=== PATIENT | female | born 1965 | race Caucasian/White ===

== ENCOUNTER → 2019-12-29 13:38 | Outpatient (CLI) | payer BC, SELFPAY ==
[2019-12-30 14:09] LABS: COVID19 Sendout Not Detected (Not Detect)
== END ==
PROVIDERS: Visit Provider Physician Assistant
DX: Z01.812 Encounter for preprocedural laboratory examination (principal)
CPT/HCPCS: 87635

== ENCOUNTER 2020-01-02 15:25 | Observation (INO) | payer BC, SELFPAY ==
[2019-12-25 14:55] VITALS: BMI 18.1
[2020-01-01] VITALS (14 sets, daily range): BP systolic 98–148; BP diastolic 60–88; PULSE 63–88; RESP 12–20; TEMP 36.2–36.9; O2SAT 95–100; BMI 18.1
--- NOTE | 2020-01-01 | DI.RAD.S_ITS ---
PROCEDURE: XR LUMBAR SPINE 2-3V INDICATIONS: L3-4 TLIF TECHNIQUE: 2 views of the lumbar spine were acquired. COMPARISON: None. FINDINGS: Bones: Postsurgical changes compatible with L3-L4 TLIF. Soft tissues: Overlying bowel gas pattern is normal. No suspicious soft tissue calcifications. IMPRESSION: Expected postsurgical change for L3-L4 TLIF. Dictated by: Hallie Collier MD, PhD on 01/01/2020 at 15:45 Approved by: Hallie Collier MD, PhD on 01/01/2020 at 15:48
--- NOTE | 2020-01-01 11:41 | PM.PREOP ---
Pre-operative Note COVID-19 COVID-19 status: Negative Result date/Date tested (Pos, Neg/Pending): 12/30/19 Interval Note History & Physical reviewed/Exam performed by Physician: Yes Changes to H&P: No
[2020-01-01] MEDS: LACTATED RINGERS 1,000 ML 42 ML IV ×2 (12:01→14:16)
[2020-01-01] MEDS: CEFAZOLIN 2 GM/100 ML FROZ.PIGGY IV (12:24)
--- NOTE | 2020-01-01 12:52 | SUR.OPER ---
Prone on spine table, head in foam head support, padded chest and pelvic supports, gel pad at knees, lower legs supported by pillows; nipples, genitalia and toes free of pressure, arms secured on foam padded arm boards at <90 degrees abduction. Tape over blanket at thigh secured to table.
[2020-01-01] MEDS: BUPIVACAINE LIPOSOME 266 MG/20 ML VIAL INJ (13:01)
[2020-01-01] MEDS: BUPIVACAINE 0.25% W/ EPI 30 ML VIAL INJ (13:01)
--- NOTE | 2020-01-01 14:45 | P.OP_ITS ---
Operative Date/Time/Diagnoses Date of procedure: 01/01/20 Time of procedure: 12:20 Pre-op diagnosis: 1. Lumbar scoliosis 2. Lumbar spinal stenosis with neurogenic claudication L3-4, L4-5 3. Lumbar spondylosis with radiculopathy Post-op diagnosis: same Procedure & Clinicians Procedure: 1. L3-4 Postero-lateral and posterior interbody fusion 2. L3-4 interbody cage placement. 3. L3-4 decompressive laminectomy with bilateral facetecomies 4. L4-5 right hemilaminectomy 5. L3-4 Posterior non-segmental instrumentation 6. [place] of bone marrow from iliac crest 7. Utilization of microsurgical technique and operating microscope Same procedure as scheduled: Yes Indications: Patient has been having chronic back pain and worsening lumbar radiculopathy. Patient failed multiple conservative management with worsening pain weakness and numbness in her lower extremity. Patient has been having difficulty performing activity of daily living. After discussing risks benefits of treatment options, patient elected proceed with surgery. Surgeon: Karen Shepherd Logistics Operations Manager: Sanjana Amaya Click Yes if Unassisted: No Anesthesia Type: General Operative Notes Closure Type: primary Specimen(s): none sent Prosthetic devices, grafts, tissues, transplants, or devices: GLobus revolve screws, Rise cages Estimated Blood Loss (mL): 50 Blood products transfused: none Procedure in detail: Patient was seen in the preoperative area. Risks and benefits of the surgery was discussed with the patient. Informed consent was obtained from the patient and placed in the chart. Surgical site was marked. Patient was taken to the operative room. General anesthesia was administered. Prophylactic antibiotic was given to the patient less than 30 min before the incision was made. Patient was placed into a prone position on the Lars table. Patient's back was then prepped and draped in the sterile fashion. Time- out was performed at this time. Using AP and lateral C-arm imaging the interval between L3-4 L4-5 was identified and marked on patient's back. A 2 inch incision 2 in from midline was made on the right side first. The fascia was incised in line with skin incision. Globus MARS retractors was placed inside the incision and docked onto the L3 lamina. Using microsurgical technique and operating microscope, a L3 laminectomy and L3- 4 facetectomy was performed using a Kerrison rongeur. Fusion was found have severe central and neural foramen stenosis which was fully decompressed after the laminectomy and facetectomy was completed. The disc space at L3-4 was identified. And a total diskectomy was performed at L3-4 level. The endplates were decorticated using a rasp and shaver. The total diskectomy and decortication was performed at L3-4 level in order to to accomplish a L3-4 fusion. The local bone from the laminectomy and facetectomy was saved for local bone grafting. After the total diskectomy and decortication was completed, Trifecta bone graft material was combined with local bone that was harvested earlier. At this time, a separate skin is incision was made over the iliac crest. A Jamshidi needle was inserted into the iliac crest through a separate skin incision. 5 cc of bone marrow aspiration was obtained through the separate skin incision using a Jamshidi needle from the iliac crest. The bone marrow aspiration was combined with local bone and the Trifecta bone grafting material. The bone grafting material was placed into the L3-4 interbody space along with a expandable cage. The cage was expanded to its maximum height using the torque limiting screwdriver. At this time the MARS retractor was redirected over the L4 lamina. Using microsurgical technique and operating microscope, a L4-5 heminectomy was performed using the Kerrison rongeur. The ligamentum flavum was also resected at the side of the hemilaminectomy for further decompression of the epidural space. At this time a mirror image incision was made on the left side. The fascia was incised in line with the skin incision. Globus MARS retractor was inserted and docked onto the L3-4 posterolateral gutter. Using the power drill, posterior- lateral decortication was performed at L3-4 level until bleeding cortical bone was identified. The remaining bone grafting material was placed into the L3-4 posterior lateral gutter he order to accomplish posterolateral fusion at the L3- 4 level. Using the double C-arm technique, pedicle screws were placed into the L3 and L4 pedicles bilaterally. This was done by placing the Jamshidi needle into the pedicles, then placing the guidewires over the Jamshidi needle, and finally placing the cannulated screws over the guidewires bilaterally. After the pedicle screws were placed, 2 titanium rods was locked into the heads of the pedicle screws using locking caps and torque limiting screwdriver. After all the hardware was placed, and confirmed with AP and lateral C-arm imaging, the wound was then irrigated with sterile normal saline and packed with Ray-Alfonso gauze for 3 min to accomplish hemostasis. After the gauze was removed the deep fascia was closed with #1 Vicryl suture. The subcutaneous layer was closed with 2-0 Vicryl. The skin was closed with skin kyle. Patient tolerated the procedure well. There were no complications. Complications: none Post-operative Condition: stable Disposition: PACU Plan for aftercare: Admit to inpatient hospital
[2020-01-01] MEDS: fentaNYL 100 MCG/2 ML INJ IV ×3 (15:00→15:19)
--- NOTE | 2020-01-01 15:23 | SUR.PHASEI ---
Rx repeated for pain, pt resting quietly, states that pain is beginning to improve, but 'not yet' a 4. Drowsy, responds readily to voice.
[2020-01-01] MEDS: OXYCODONE/ACETAMINOPHEN 5/325 TABLET 1 TAB PO (15:37)
--- NOTE | 2020-01-01 15:37 | SUR.PHASEI ---
states pain is 'a four, maybe a 3. Applesauce given prior to PO med
--- NOTE | 2020-01-01 16:13 | SUR.PHASEI ---
1559 to room 216, bed down and locked, call light within reach, SCD's on. Back dressing remains CDI. Clothing and blue bag to the room. Report updated. No questions from pt or staff. Stable.
[2020-01-01] MEDS: OXYCODONE IR 5 MG TABLET PO (16:49)
[2020-01-01] MEDS: SODIUM CHLORIDE 0.9% 1,000 ML 100 ML IV (17:10)
[2020-01-01] MEDS: ONDANSETRON 4 MG/2 ML INJ IV (17:20)
[2020-01-01] MEDS: HYDROMORPHONE 0.5 MG INJ 0.2 MG IV (20:47)
[2020-01-01] MEDS: CEFAZOLIN 1 GM/50 ML FROZ.PIGGY IV (20:48)
[2020-01-02] VITALS: BP 117/75; PULSE 85; RESP 18; TEMP 37.6; O2SAT 97
[2020-01-02] MEDS: ONDANSETRON 4 MG/2 ML INJ IV ×2 (00:31→08:08)
[2020-01-02] MEDS: hydrOXYzine pamoate 25 MG CAPSULE PO ×2 (00:32→08:08)
[2020-01-02] MEDS: OXYCODONE IR 5 MG TABLET PO ×4 (00:32→16:10)
[2020-01-02] MEDS: SODIUM CHLORIDE 0.9% 1,000 ML 100 ML IV (02:35)
[2020-01-02 03:10] VITALS: BP 109/60; PULSE 85; RESP 22; TEMP 37.4; O2SAT 97
--- NOTE | 2020-01-02 03:26 | PC.NURSE ---
Patient complains of nausea and dizziness upon shifting position and when transferring from the bed to the bedside commode. She was medicated with an anti-emetic and pain medication, see MAR. The patient was sat at the bedside and became dizzy and had an output of 125mL of emesis. Patient states, I feel much better after I throw up. She was educated on deep breathing to help with nausea, anxiety and pain and assisted back to bed with safety checks completed.
[2020-01-02] MEDS: CEFAZOLIN 1 GM/50 ML FROZ.PIGGY IV (04:06)
[2020-01-02 07:00] VITALS: BP 91/59; PULSE 60; RESP 16; TEMP 37.7; O2SAT 96
--- NOTE | 2020-01-02 08:08 | PM.PN.1 ---
Exam Vital Signs (past 8 hours): - 01/02/20 03:10 Temperature 99.3 F Pulse Rate 85 Respiratory Rate 22 Blood Pressure 109/60 Pulse Oximetry 97 Oxygen Delivery Method Room Air Oxygen Flow Rate 0 Assessment & Plan Assessment & Plan narrative: POD#1 s/p L3-4 TLIF and L4-5 hemilami Neurovascularly intact. No S/s of DVT. Patient has nausea and vomitting, zofran does help per patient. Dressing clean dry intact. Will plan to d/c later today after cleared by PT/OT and improved nausea. Quality VTE Deep Vein Thrombosis/Pulmonary Embolism Present on Admission: No
--- NOTE | 2020-01-02 10:25 | PT.IIE ---
Current Diagnoses Other secondary scoliosis, lumbar region (01/01/20) Spondylolisthesis, lumbar region (01/01/20) Spinal stenosis, lumbar region with neurogenic claudication (01/01/20) Surgery Performed Operation Date: 01/01/20 12:45 Actual Procedures p L4-5 hemilaminectomy, L3-4 TLIF w. posterior instrumentation - Karen Shepherd MD Surgical History (Last Updated 08/20/19 @ 14:24 by Jen Puentes, RN) Hx of bilateral breast implants (Acute) Hx of tonsillectomy (Acute) Medical History (Last Updated 08/20/19 @ 14:24 by Jen Puentes RN) Abnormal small intestine motility (Acute) Anxiety (Acute) Arthritis (Acute) Back pain (Acute) Depression (Acute) Easy bruisability (Acute) Malabsorption (Acute) Neck pain (Acute) OCD (obsessive compulsive disorder) (Acute) Pedal edema (Acute) PTSD (post-traumatic stress disorder) (Acute) Sciatica (Acute) Physical Therapy Inpatient Evaluation/Re-Eval M1 PT/OT-IP Prior Functional Status Start: 01/02/20 12:42 Freq: NEEDED Status: Active Protocol: Document 01/02/20 10:25 AB (Rec: 01/02/20 12:57 AB [id number]) Medical Review Prior Functional Status Medical History Reviewed Yes Communication able to make needs known Mobility and Gait pt stated that she is independent with all mobilities and ambulation without AD Social History Household Members spouse Living Arrangements House Number of Floors (Floors) One Floor Number of Stairs To Enter/Railing? 1 step to enter Home Environment Standard Height Toilet,Walk in Shower,Built-In Shower Seat Home Equipment Front Wheel Walker,Hand Held Shower Employment Status Retired M2 PT-IP Current Condition Start: 01/02/20 12:42 Freq: NEEDED Status: Active Protocol: Document 01/02/20 10:25 AB (Rec: 01/02/20 12:57 AB [id number]) Physical Therapy Current Condition Current Condition Evaluation Date 01/02/20 Treatment Diagnosis s/p L3-4 postlat/post fusion/ lami; L4-5 R hemilami; difficulty in walking Onset Date 01/01/20 Precautions Lumbar Precautions Log Roll,No Twisting,Limit Bending,Lifting Restriction of 10 lbs,Gait Belt above Incisional Area M3 PT-IP Subjective Start: 01/02/20 12:42 Freq: NEEDED Status: Active Protocol: Document 01/02/20 10:25 AB (Rec: 01/02/20 12:57 AB [id number]) Subjective Physical Therapy Visit Type Type Initial Evaluation Visit Start Time 10:25 Visit Stop Time 10:58 Total Visit Minutes 33 Number of PROCUREMENT CONSULTANT Visits 0 Physical Therapy Visit Comments Patient Comments pt is agreeable to do PT Therapy Pain Assessment Pain When Pain Assessed At Rest Pain Present Pain Present Pain Reported Location back Intensity 3 Scale Used increases to 4/10 with mobility Pain Management Techniques Modification of Treatment,Re- positioning,Timing of Activity with Medications M4 PT-IP Mobility and Gait Start: 01/02/20 12:42 Freq: NEEDED Status: Active Protocol: Document 01/02/20 10:25 AB (Rec: 01/02/20 12:57 AB [id number]) PT-Bed Mobility Assessment Rolling Type of Rolling Log Rolling Level of Assist Minimal Assistance Supine to Sit Supine to Sit Minimal Assistance,Bedrails PT-Transfer Assessment Sit to and From Stand Sit to and from Stand Moderate Assistance,1 Person Assistance,Use of Upper Extremities Equipment Transfer Assistive Device Gait Belt,Front Wheeled Walker Transfers Transfer Destination Chair Transfer Technique Stand Step Pivot Transfer Ability Level of Assist 1 Person Assistance,Use of Upper Extremities Comments Mobility Comments BP in supine: 101/58. educated pt on back precautions and log roll bed mobility. completed supine to sit min A and cues. pt was able to sit on EOB CGA. c/o nausea and dizziness. BP 114/ 69. pt was able to stay seated and BP checked again after ~ 2min: 106/72. pt completed sit to stand mod A and cues. BP in standin /72. pt was able to stand with CGA and BP checked again after ~ 2min : 131/53. pt completed step transfer to chair using FWW min A. BP checked after transfer: 92/55. pt continues to c/o dizziness and nausea. ambulation deferred due to decrease in BP and c/o nausea. educated on sit <>stand technique. completed sit <> stand x 3 reps min A and cues. positioned pt on chair. call light and table placed within reach. Gait Assessment Comments Gait Comments please refer to mobility section for details PT-Balance Assessment Sitting Balance and Reactions Static Sitting Balance Ability Good Dynamic Sitting Balance Ability Fair Standing Balance and Reactions Static Standing Balance Ability Fair Dynamic Standing Balance Ability Fair Device Used FWW M5 PT-IP Objective Assessments Start: 01/02/20 12:42 Freq: NEEDED Status: Active Protocol: Document 01/02/20 10:25 AB (Rec: 01/02/20 12:57 AB [id number]) Orientation Orientation/Cognition Level of Alertness Alert Orientation Name,Place,Situation Language Function Ability No Deficits Noted Safety Awareness Understands Safety Issues Memory Description No Deficits Noted Gross Range of Motion Lower Extremity ROM Assessment Within Functional Limits Strength Lower Extremity Strength Assessment Within Functional Limits Sensation Assessment Sensation Gross Sensation WNL Muscle Tone Muscle Tone WNL Yes M6 PT-IP Treatment Start: 01/02/20 12:42 Freq: NEEDED Status: Active Protocol: Document 01/02/20 10:25 AB (Rec: 01/02/20 12:57 AB [id number]) Physical Therapy Treatment Education Education Provided Precautions,Weight Bearing Status,Post-Op Packet,Safety M7 PT-IP Assessment and Plan Start: 01/02/20 12:42 Freq: NEEDED Status: Active Protocol: Document 01/02/20 10:25 AB (Rec: 01/02/20 12:57 AB [email or web address]) PT Summary Assessment and Plan Potential Rehabilitation Potential Good Status of Condition at Evaluation Evolving Summary Impairments Pain,ROM,Strength,Balance,Bed Mobility,Transfers,Gait, Activity Tolerance Assessment Summary pt requiring min to mod A with mobility but unable to tolerate much activity due to c/o dizziness and nausea with decrease in BP. pt plans to go home with spouse to assist her. will conduct caregiver training when appropriate. will also complete stair climbing training prior to d/c . will continue to assess progress. Goals Bed Mobility Goal Independent Transfer Goal Independent,Front Wheeled Walker Gait Goal Independent,Front Wheel Walker Gait Distance 150 Other Goals up/down 1 step using FWW SBA Days to Meet Goals 3 Frequency of Treatment Frequency Of Treatment Twice a Day Treatment Plan Physical Therapy Treatment Plan Bed Mobility Training,Transfer Training,Gait Training, Therapeutic Exercise,Balance Retraining,Post Op Education, Discharge Planning,Hot or Cold Pack,Neuromuscular Re-ed, Coordination Retraining,Manual Therapy Other Recommendations and Next Treatment ambulation, stair training, Focus log roll bed mobility, caregiver trainign Recommendations To Nursing Amount of Assist Needed 1 Person Assist Discharge Recommendations PT Discharge Recommendations Home with Assistance Transportation Needs at Discharge Private Vehicle
[2020-01-02] MEDS: ACETAMINOPHEN 325 MG TABLET 650 MG PO (10:28)
[2020-01-02 12:00] VITALS: BP 108/61; PULSE 74; RESP 14; TEMP 37.6; O2SAT 100
--- NOTE | 2020-01-02 13:25 | CM.DANOTE ---
DCP Assessment: EMR Reviewed: Patient is a 54 yr old female who had multiple lumbar spinal surgery preformed by Dr. ASHRAF. Patients PCP is Margot Durham. CM/RN met with patient at the bedside and explained role. Patient was alert and oriented at time of visit. Patient currently lives in a single level home with her Dru. patient is independent with all ADLs and Drives at baseline. Patient currently owns FWW, and has a walk in shower with a built in bench. PT eval states patient is good for home with assistance. I: [employer] and self pay Plan: D/C home with when medically stable. No Identified D/C planning needs noted at this time. Cm department will follow to help with any new D/C planning needs that may arise. Mi Reeves RN Discharge Planning/Care Management CM Discharge Assessment Start: 01/02/20 13:20 Freq: Status: Active Protocol: Document 01/02/20 13:20 HS (Rec: 01/02/20 13:21 [id number]) Discharge Planning Assessment Assigned Portable Pinch Riveter Mi Reeves RN DPOA/Assigned Designee Name Dru Kaur () Contact Information [phone] Advance Directives? No History Provided By Patient,Medical Record Has Patient been admitted in last 30 No days? Prior Living Arrangements House Household Members spouse Type of transporation used prior to Drives own vehicle admit Independent with ADL's Yes Is patient alert and oriented? Yes DME Already Rented / Owned Bath Bench,FWW / Walker,Cane Discharge Plan Home Referrals Initiated None needed Whiteboard Updated in Patient Room with Yes name and ext. # of Portable Pinch Riveter Review Status In Process Next Review Type Continued Stay Review Pre-Anesthesia Assessment Start: 12/25/19 14:55 Freq: Status: Active Protocol: Document 12/25/19 14:55 CAB (Rec: 12/25/19 15:03 CAB [id number]) Pre-Anesthesia Assessment PAC Comment Pt declined PAC phone assess for this surgery that was rescheduled from August r/ COVID. Original phone assess completed 08/20/19, pt states no questions or changes to medical/medication history Patient Information Reviewed Via Chart Review Diagnostic Results BMP/CMP,CBC,EKG Comment Outside labs/EKG scanned to record-COVID screen @ Primary Care Provider Herminio Greco Seen Specialist in Last 12 Months Yes Specialist Seen Orthopedist,Other Comment GI Primary Language Albanian [employer]ile Supply Technician Required No Height 170.18 cm Weight 52.617 kg Body Mass Index (BMI) 18.1 Hearing Ability Normal Visual Assist Glasses Dentition Type Teeth, Natural Present Barriers to Learning None Other Aids No Hx Anesthesia Reactions No: I'm very sensitive to medication Hx Family Anesthesia Reaction No Hx Malignant Hyperthermia No Hx Blood Transfusions No Anesthesia Review Requested No alcohol intake former Smoking Status Never smoker Substance Use Type does not use Pain Present Pain Reported Musculoskeletal Symptoms Abnormal Gait,Back Pain, Difficulty Walking,Muscle Cramps,Muscle Spasms,Muscle Weakness,Neck Pain,Radiating Pain into Limb History of Falling (Recent or History of No ) Patient is completely paralyzed or No completely immobile Mental Status Oriented to own ability Is patient on oxygen? No Does patient have FLORES/SOB No Hx Sleep Apnea No Currently Taking a Beta Ana M No Can You Climb a Flight of Stairs Without No SOB Hx Chest Pain No Hx SOB No Hx Syncope or Dizziness No Anti-Coagulant Therapy No Has a Assembler [employer] No Cardiac Testing No Hx Pacemaker/ICD No Pacemaker Rep Required? No Cardiac Clearance Received Not Applicable Diet Type At Home Gluten Free dysphagia No Urinary Catheter Present No Hx Urinary Self Catheterization No Diabetes No Patient No Lactating No Hx Drug Resistant Organism No Presence of External or Internal Medical Yes: Breast implants Devices Have you had any close contact with Unknown someone diagnosed with COVID-19? Marital Status Lives With spouse Prior Living Arrangements House Number of Floors (Floors) One Floor Support System Spouse Does the Patient Have Assistance After Yes Surgery Patient Discharge Plan Description Return Home Feels Safe in Current Environment Yes Been Physically Hurt or Threatened By a No Person in Current Environment Do you have thoughts of harming yourself None or others? Are you currently considering suicide? No Do you have a plan to hurt yourself or No Plan others? Do You Have Any Spiritual Beliefs That No May Affect Your HC Choices? Do You Have Any Cultural Practices That No May Affect Your HC Choices? Comment Angela Who Can We Speak to About Patient's Care Family, friends Identifying Code for Release of Patient Declines to issue Information Health Care Proxy/Next of Kin Dru () Health Care Proxy Emergency Contact Name Dru () Emergency Contact Advance Directives? No Power of Consultant Dietitian No
--- NOTE | 2020-01-02 14:26 | OT.IP.EVAL ---
Current Diagnoses Other secondary scoliosis, lumbar region (01/02/20) Spondylolisthesis, lumbar region (01/02/20) Spinal stenosis, lumbar region with neurogenic claudication (01/02/20) Surgery Performed Operation Date: 01/01/20 12:45 Actual Procedures p L4-5 hemilaminectomy, L3-4 TLIF w. posterior instrumentation - Karen Shepherd MD Past Medical History (Last Updated 08/20/19 @ 14:24 by Jen Puentes RN) Abnormal small intestine motility (Acute) Anxiety (Acute) Arthritis (Acute) Back pain (Acute) Depression (Acute) Easy bruisability (Acute) Malabsorption (Acute) Neck pain (Acute) OCD (obsessive compulsive disorder) (Acute) Pedal edema (Acute) PTSD (post-traumatic stress disorder) (Acute) Sciatica (Acute) Surgical History (Last Updated 08/20/19 @ 14:24 by Jen Puentes RN) Hx of bilateral breast implants (Acute) Hx of tonsillectomy (Acute) Occupational Therapy Inpatient Evaluation/Re-Eval M1 PT/OT-IP Prior Functional Status Start: 01/02/20 15:45 Freq: NEEDED Status: Active Protocol: Document 01/02/20 15:45 [facility] (Rec: 01/02/20 16:09 [facility] [id number]) Medical Review Prior Functional Status Medical History Reviewed Yes Communication able to make needs known Mobility and Gait pt stated that she is independent with all mobilities and ambulation without AD Activities of Daily Living and IADL's Pt having to sit for LB dressing needs and would take her longer to get dressed. Social History Household Members spouse Living Arrangements House Number of Floors (Floors) One Floor Number of Stairs To Enter/Railing? 1 step to enter Home Environment Standard Height Toilet,Walk in Shower,Built-In Shower Seat Home Equipment Front Wheel Walker,Hand Held Shower Employment Status Retired M2 OT-IP Current Condition Start: 01/02/20 15:45 Freq: Status: Active Protocol: Document 01/02/20 15:45 [facility] (Rec: 01/02/20 16:09 [facility] [id number]) Occupational Therapy Current Condition Current Condition Evaluation Date 01/02/20 Treatment Diagnosis Lumbar spinal stenosis, s/p L3 -4 TLIF and L4-5 [id number] Diagnosis Onset Date 01/01/20 Post Operative Precautions Lumbar Precautions Log Roll,No Twisting,Limit Bending,Lifting Restriction of 10 lbs,Gait Belt above Incisional Area M3 OT- IP Subjective and Pain Start: 01/02/20 15:45 Freq: Status: Active Protocol: Document 01/02/20 15:45 [facility] (Rec: 01/02/20 16:09 [facility] [id number]) OT- Subjective Occupational Therapy Visit Type Type Initial Evaluation Visit Start Time 11:00 Visit Stop Time 14:26 Total Visit Minutes 91 Notes Pt seen for split treatment as pt wanting to go home today and therefore seen again in PM for caregiver training with pt's . [id number] and [id number]. Occupational Therapy Visit Comments Patient Comments Pt wanting to shower prior to going home. Patient/Caregiver Goals To go home. OT Pain Assessment Pain When Pain Assessed During Mobility Pain Present Pain Present Pain Reported Location back Intensity 4 M4 OT- IP ADL's Start: 01/02/20 15:45 Freq: Status: Active Protocol: Document 01/02/20 15:45 [facility] (Rec: 01/02/20 16:09 [facility] [id number]) OT [id number] Comments OT Self-Feeding Comments NOt at meal time. OT ADL-Grooming General Evaluation Grooming Ability Standby Assistance Areas Needing Assistance Retrieving/Set-up of Grooming Items Comments OT Grooming Comments Initial education to bend at hips in order to spit into the sink or just spit into a cup. OT ADL-Oral Care General Eval Oral Care Ability Independent OT ADL-Dressing General Eval Upper Body Dressing Ability Standby Assistance Lower Body Dressing Ability Minimal Assistance Areas Needing Assistance Socks Comments OT Dressing Comments Pt able to cross her legs over to do LB dressing however having a little difficulty to get her pants on over her feet and therefore benefits from use of sheeting puller to assist as needed. OT ADL-Toileting General Evaluation Toileting Ability Standby Assistance Comments OT Toileting Comments Pt able to hinge at her hips to reach for pericare needs after urination and able to reach form behind while following back precautions to stimulate wiping after a bowel movement. Suggested wipes would be beneficial to increase ease for hygiene needs. Suggested best to wake her up if having to use the bathroom and can be helpful to wear pads at night. OT ADL-Bathing Bathing Type Bathing Type Shower General Evaluation Bathing Ability Minimal Assistance Areas Needing Assistance Wash/Dry Back Devices Bathing Equipment Shower Chair with Arms,Grab Bars Comments OT Bathing Comments Pt able to stand for part of her shower and needing occasional use of grab bar for balance. Pt 's aware and able to give pt assist as needed in the shower. Pt has a built in seat at home but may benefit from a higher shower chair to use at home. M5 OT- IP IADL's Start: 01/02/20 15:45 Freq: Status: Active Protocol: Document 01/02/20 15:45 [facility] (Rec: 01/02/20 16:09 [facility] [id number]) OT-Instrumental Activities of Daily Living Home Safety Awareness Awareness of Need for Assistance at Home Good Awareness Ability to Problem Solve Emergency Able to Problem Solve Situations Medication Management Medication Management Comments Pt's states to provide supervision initially. Money Management Money Management Comments Suggested for to provide supervision initially . Meal Preparation Meal Preparation Caregiver Provides Assist Computer Systems Hardware Analyst Computer Systems Hardware Analyst Caregiver Provides Assist M6 OT- IP Functional Cognition Start: 01/02/20 15:45 Freq: Status: Active Protocol: Document 01/02/20 15:45 [facility] (Rec: 01/02/20 16:09 [facility] [id number]) Cognitive Factors Limiting Selfcare Function Cognitive Ability Level of Alertness Alert Patient Orientation Name,Age,Birthday,Month,Date, Year,Day of Week,Place, Situation Attention Span Ability Capable of Focused Attention, Capable of Sustained Attention Ability to Follow Commands Able to Follow One Step Commands Memory Description No Deficits Noted Safety Awareness Decreased Ability to Apply Precautions,Underestimates Need for Assistance Problem Solving Ability No deficits Noted Cognitive Comments Cognitive Assessment Comments Pt a little groggy and needing occasional vc to incorporate back precautions during ADl needs. Pt needing occasional safety cue to push from the armrest of the recliner to stand and use at least one hand on the FWW before standing. Pt needing reminders to use her legs while standing as heavily using her arms to hold herself upright with FWW and needing reminders to use her legs more. OT- Vision and Hearing OT- Hearing Assessment OT- Hearing Assessment WFL OT- Vision Assessment Visual Acuity Glasses All The Time M7 OT- IP Mobility and Balance Start: 01/02/20 15:45 Freq: Status: Active Protocol: Document 01/02/20 15:45 [facility] (Rec: 01/02/20 16:09 [facility] [id number]) OT-Transfer Assessment Sit to and From Stand Sit to and from Stand Contact Guard Assistance, Minimal Assistance,Moderate Assistance Transfers Transfer Ability Standby Assistance,Contact Guard Assistance Technique Transfer Destination Bed,Chair,Shower Stall,Toilet Transfer Technique Stand Step Pivot Devices Transfer Assistive Devices Gait Belt,Front Wheeled Walker Comments Mobility Comments Pending on level or surfaces transferring to and from at times pt needs MODA to stand. Pt's trained on how to wilmar/doff the gait belt and how to give assist as needed. OT- Gait Assessment Comments Gait Ability Comments CGA to SBA with FWW on level surfaces . OT- Balance Assessment Sitting Balance and Reactions Static Sitting Balance Ability Normal Dynamic Sitting Balance Ability Normal Standing Balance and Reactions Static Standing Balance Ability Good M8 OT- IP Objective Assessments Start: 01/02/20 15:45 Freq: Status: Active Protocol: Document 01/02/20 15:45 [facility] (Rec: 01/02/20 16:09 [facility] [id number]) OT Gross Range of Motion Upper Extremity Range of Motion Assessment Within Functional Limits M9 OT- IP Assessment and Plan Start: 01/02/20 15:45 Freq: Status: Active Protocol: Document 01/02/20 15:45 [facility] (Rec: 01/02/20 16:09 [facility] [id number]) OT Summary Assessment and Plan Potential Rehabilitation Potential Good Analytic Complexity at Evaluation Low Summary OT Impairments Functional Mobility,Dressing, Toileting,Bathing,Toilet Transfers,Shower Transfers Progress Towards Goals Progressing Toward Goals Assessment Summary Pt low complexity and main barrier is pain , transition from sit to stand , and vc for safety awareness and to incorporate back precautions for needs. Pt's present for caregiver training and able to show and demonstrate good safety for gait belt management, transfers, and ADL needs. Pt looking to go home today and pt's to assist. Goals Grooming Goal Independent Dressing Goal Independent Toileting Goal Independent Bathing Goal Independent Toilet Transfer Goal Independent Shower Transfer Goal Independent Patient/Caregiver Education Goal Demonstrate Post-Op Precautions,Caregiver Independent Assisting Patient Days to Meet Goals 3 Frequency of Treatment Frequency Of Treatment Once a Day Treatment Plan OT Treatment Plan ADL Training,Functional Mobility,Patient/Family Education,Discharge Planning Discharge Recommendations OT Discharge Recommendations Home with Assistance Home Equipment Needs shower chair Transportation Needs at Discharge Private Vehicle
--- NOTE | 2020-01-02 15:09 | PT.IPTN ---
Current Diagnoses Other secondary scoliosis, lumbar region (01/02/20) Spondylolisthesis, lumbar region (01/02/20) Spinal stenosis, lumbar region with neurogenic claudication (01/02/20) Surgery Performed Operation Date: 01/01/20 12:45 Actual Procedures p L4-5 hemilaminectomy, L3-4 TLIF w. posterior instrumentation - Karen Shepherd MD Physical Therapy Treatment Note M2 PT-IP Current Condition Start: 01/02/20 12:42 Freq: NEEDED Status: Active Protocol: Document 01/02/20 10:25 [facility] (Rec: 01/02/20 12:57 [facility] [id number]) Physical Therapy Current Condition Current Condition Evaluation Date 01/02/20 Treatment Diagnosis s/p L3-4 postlat/post fusion/ lami; L4-5 R hemilami; difficulty in walking Onset Date 01/01/20 Precautions Lumbar Precautions Log Roll,No Twisting,Limit Bending,Lifting Restriction of 10 lbs,Gait Belt above Incisional Area M3 PT-IP Subjective Start: 01/02/20 12:42 Freq: NEEDED Status: Active Protocol: Document 01/02/20 15:09 [facility] (Rec: 01/02/20 16:08 [facility] [id number]) Subjective Physical Therapy Visit Type Type Treatment Note Visit Start Time 15:09 Visit Stop Time 14:45 Total Visit Minutes 36 Number of BREAKER UP Visits 0 Physical Therapy Visit Comments Patient Comments pt agreeable to do PT. spouse in room for training Therapy Pain Assessment Pain When Pain Assessed At Rest Pain Present Pain Present Pain Reported Location back Intensity 4 Scale Used Numeric (0 - 10) Pain Management Techniques Distraction,Modification of Treatment,Re-positioning, Timing of Activity with Medications M4 PT-IP Mobility and Gait Start: 01/02/20 12:42 Freq: NEEDED Status: Active Protocol: Document 01/02/20 15:09 [facility] (Rec: 01/02/20 16:08 [facility] [id number]) PT-Bed Mobility Assessment Rolling Type of Rolling Log Rolling Level of Assist Standby Assistance Supine to Sit Supine to Sit Standby Assistance Sit to Supine Sit to Supine Standby Assistance Scooting Scooting to Edge of Bed Standby Assistance PT-Transfer Assessment Sit to and From Stand Sit to and from Stand Contact Guard Assistance,1 Person Assistance,Use of Upper Extremities Equipment Transfer Assistive Device Gait Belt,Front Wheeled Walker Orthotic/Prosthetic Devices or Brace: No Transfers Transfer Destination Bed Transfer Technique ambulated using FWW Transfer Ability Level of Assist Contact Guard Assistance,1 Person Assistance Comments Mobility Comments pt sitting on chair. spouse in room for training. educated spouse on use of safety belt and how to assist pt. spouse was able to put safety belt on pt and assist pt with sit <> stand. pt completed sit <>stand x 4 reps with initial cues for techniques but able to complete with CGA without cues towards end of reps. pt ambulated in room using FWW ~ 25 ft with spouse assisting. completed log roll supine <> sit x 2 sets with first set with cues and 2nd set without cues SBA. spouse was able to assist pt safely with mobility . pt ambulated in the hallway using FWW ~ 50 ft CGA. completed up/down platform step using FWW CGA. pt completed x 2 sets. pt assisted back to her room. ambulated from w/c to bed CGA and completed sit to supine SBA. positioned pt in bed. call light and table placed within reach. Gait Assessment Gait Gait Assistance Required: Contact Guard Assist Distance (Feet) 50 Able to Maintain Weight Bearing Status Yes During Gait Assistive Devices Assistive Device Gait Belt,Front Wheeled Walker Orthotic/Prosthetic Devices or Brace: No Gait Deviations General Gait Pattern Decreased Stride Length, Decreased Feet Clearance Factors Limiting Gait Function Factors Limiting Gait Function Decreased Activity Tolerance, Decreased Strength,Limited Range of Motion,Pain,Poor Balance,Poor Safety Awareness Comments Gait Comments please refer to mobility section for details Stair Climbing Assessment Evaluation Level of Assist On Stairs Contact Guard Assistance Devices Stair Climbing Assistive Devices Front Wheel Walker Technique/Endurance Stair Climbing Direction Ascend and Descend Stair Climbing Technique Step to Step Number of Steps Climbed 1 Stair Climbing Set # Repetitions (reps) 1 Comments Stair Climbing Comments up/down platform step CGA M5 PT-IP Objective Assessments Start: 01/02/20 12:42 Freq: NEEDED Status: Active Protocol: Document 01/02/20 10:25 [facility] (Rec: 01/02/20 12:57 [facility] [id number]) Orientation Orientation/Cognition Level of Alertness Alert Orientation Name,Place,Situation Language Function Ability No Deficits Noted Safety Awareness Understands Safety Issues Memory Description No Deficits Noted Gross Range of Motion Lower Extremity ROM Assessment Within Functional Limits Strength Lower Extremity Strength Assessment Within Functional Limits Sensation Assessment Sensation Gross Sensation WNL Muscle Tone Muscle Tone WNL Yes M6 PT-IP Treatment Start: 01/02/20 12:42 Freq: NEEDED Status: Active Protocol: Document 01/02/20 15:09 [facility] (Rec: 01/02/20 16:08 [facility] [id number]) Physical Therapy Treatment Education Education Provided Precautions,Safety M7 PT-IP Assessment and Plan Start: 01/02/20 12:42 Freq: NEEDED Status: Active Protocol: Document 01/02/20 15:09 [facility] (Rec: 01/02/20 16:08 [facility] [id number]) PT Summary Assessment and Plan Potential Rehabilitation Potential Good Summary Impairments Pain,ROM,Strength,Balance, Cognition,Bed Mobility, Transfers,Gait,Activity Tolerance Progress Towards Goals Progressing Toward Goals Assessment Summary caregiver training conducted and spouse is able to assist pt safely with mobility. pt plans to go home later today with spouse to assist her. pt may go home when medically stable. Goals Bed Mobility Goal Independent Transfer Goal Independent,Front Wheeled Walker Gait Goal Independent,Front Wheel Walker Gait Distance 150 Other Goals up/down 1 step using FWW SBA Days to Meet Goals 3 Frequency of Treatment Frequency Of Treatment Twice a Day Treatment Plan Physical Therapy Treatment Plan Bed Mobility Training,Transfer Training,Gait Training, Therapeutic Exercise,Balance Retraining,Post Op Education, Discharge Planning,Hot or Cold Pack,Neuromuscular Re-ed, Coordination Retraining,Manual Therapy Other Recommendations and Next Treatment ambulation, stair training, Focus log roll bed mobility, caregiver trainign Recommendations To Nursing Amount of Assist Needed 1 Person Assist Discharge Recommendations PT Discharge Recommendations Home with Assistance Transportation Needs at Discharge Private Vehicle
== END 2020-01-02 16:16 | disposition home or self-care (01) ==
LOC: OR 15:39 → AC 15:39
PROVIDERS: Admitting Provider Orthopaedic Surgery Orthopaedic Surgery of the Spine; PCP Internal Medicine; Referring Provider Orthopaedic Surgery Orthopaedic Surgery of the Spine; Visit Provider Orthopaedic Surgery Orthopaedic Surgery of the Spine
PROC: (CPT 22633; principal; 2020-01-01 12:45)
DX: M48.062 Spinal stenosis, lumbar region with neurogenic claudication (principal); M43.16 Spondylolisthesis, lumbar region; M41.56 Other secondary scoliosis, lumbar region
CPT/HCPCS: 22633; 20939; 63030; 22853; 22840; 63047; 72100; 76000; 97162; 97165; 97530; 97535; C1776; G0378; C9290; J0330; J0690; J1100; J1170; J2250; J2405; J2704; J3010

== ENCOUNTER 2023-11-01 08:18 | Inpatient (IN) | payer OTHER, BC, SELFPAY ==
[2020-01-01 11:33] VITALS: BMI 18.1
[2023-10-25 13:20] VITALS: BMI 18.4
[2023-11-01] VITALS (12 sets, daily range): BP systolic 84–121; BP diastolic 38–76; PULSE 55–76; RESP 12–20; TEMP 36.1–36.6; O2SAT 95–98; BMI 18.4
--- NOTE | 2023-11-01 | DI.RAD.S_ITS ---
PROCEDURE: XR LUMBAR SPINE 2-3V INDICATIONS: L3-5 TLIF TECHNIQUE: 3 views of the lumbar spine were acquired. COMPARISON: None. Findings and impression: Intraoperative fluoroscopic images were obtained for L3-L5 posterior fusion hardware placement with interbody spacers . Please see operative note for full details. Dictated by: Justyn Carter M.D. on 11/01/2023 at 14:23 Approved by: Justyn Carter M.D. on 11/01/2023 at 14:24
[2023-11-01] MEDS: ACETAMINOPHEN 325 MG TABLET 975 MG PO (08:47)
[2023-11-01] MEDS: GABAPENTIN 600 MG TABLET PO (08:50)
[2023-11-01] MEDS: SCOPOLAMINE 1 PATCH TOP (09:10)
[2023-11-01] MEDS: LACTATED RINGERS 1,000 ML 42 ML IV ×2 (09:10→11:40)
--- NOTE | 2023-11-01 09:11 | PM.PREOP ---
Pre-operative Note Interval Note History & Physical reviewed/Exam performed by Physician: Yes Changes to H&P: No
[2023-11-01] MEDS: CEFAZOLIN 2 GM/100 ML PREMIX 100 ML IV ×2 (10:17→18:59)
[2023-11-01] MEDS: BUPIVACAINE LIPOSOME 266 MG/20 ML VIAL INJ (10:56)
[2023-11-01] MEDS: BUPIVACAINE 0.25% (PF) 60 ML, EPINEPHrine 0.15 MG INJ (10:56)
--- NOTE | 2023-11-01 13:22 | P.OP_ITS ---
Operative Date/Time/Diagnoses Date of procedure: 11/01/23 Time of procedure: 10:30 Pre-op diagnosis: 1. L4-5 spondylolisthesis 2. L4-5 spinal stenosis 3. L3-4 with history of fusion Post-op diagnosis: same Procedure & Clinicians Procedure: 1. L4-5 posterolateral and posterior interbody fusion 2. L4-5 posterior interbody cage placement 3. L3-4 posterior non-segmental instrumentation removal 4. L3-4 revision laminectomy with exploration of fusion 5. L3-4, L4-5 posterior segmental instrumentation with pedicle screw placement 6. L3-4 posterolatearl fusion 7. Whitefield of bone marrow from iliac crest through a separate incision 8. Utilization of microsurgical technique and operating microscope 9. Utilization of robotic assisted navigation Same procedure as scheduled: Yes Indications: Patient has been having chronic back pain and worsening lumbar radiculopathy. Patient had history of L3-4 fusion and was doing well until recently. Patient was found to have a significant L4-5 lateral listhesis with foraminal stenosis correlating with her symptoms of back pain and radiculopathy. Patient failed multiple conservative management with worsening pain weakness and numbness in her lower extremity. Patient has been having difficulty performing activity of daily living. After discussing risks benefits of treatment options, patient elected proceed with surgery. Surgeon: Karen Shepherd Tag Meter Operator: Maggie Troy Click Yes if Unassisted: No Anesthesia Type: General Operative Notes Closure Type: primary Specimen(s): none sent Prosthetic devices, grafts, tissues, transplants, or devices: Globus CREO MIS screws, Rise cage Applied: catheter Estimated Blood Loss (mL): 300 Blood products transfused: none Procedure in detail: Patient was seen in the preoperative area. Risks and benefits of the surgery was discussed with the patient. Informed consent was obtained from the patient and placed in the chart. Surgical site was marked. Patient was taken to the operative room. General anesthesia was administered. Prophylactic antibiotic was given to the patient less than 30 min before the incision was made. Patient was placed into a prone position on the Lars table. Patient's back was then prepped and draped in the sterile fashion. Time-out was performed at this time. After patient was prepped and draped, patient's PSIS was palpated and marked bilaterally. Small 1 cm incision was made over the PSIS for placement of the reference probes. Two trocar was placed into the PSIS 1 on each side. The reference probe was attached to the trocar of the reference apparatus. At this time the C-arm imaging was used to confirm AP and lateral of L3, L4, L5 vertebrae and merged the C-arm imaging using the FibroGen robotic navigation system with the CT of the lumbar spine. After successful merging was completed and confirmed, skin marker was used to aubrey out the skin incision using the FibroGen robotic arm. Bilateral incision was made at this time. Using patient's previous scar incision was made over the L3, L4, L5 interval on the left side. Fascia was incised in line with skin incision. Patient's previously placed hardware over the L3-4 level was identified by dissecting down to the level the hardware using a Bovie and a Pickering. The locking caps which was removed using [employer] screwdriver. The locking arely was then removed from the tulips of the pedicle screws using a Vimal. The pedicle screws were then removed using the screwdriver. The screws were found to have good purchase. Pre templated trajectory was used and guided using the FibroGen robotic navigation system for left L3, L4, L5 pedicle screws and right L3, L4 L5 pedicle screws placement. This was done by using the robotic arm to guide the high-speed bur to make a cortical entry point. Next a drill was placed also us ing the robotic arm and guided using the navigation system drilling partially through bilateral L3, L4, L5 pedicles. Next L3, L4, L5 pedicle screws it was pre templated and measured was placed onto the power industrial truck driver and inserted into the pedicles bilaterally. After all 6 screws were placed C-arm imaging was taken of both AP and lateral to confirm the placement. Excellent placement of the screws were confirmed and a matched precisely with the pre planned screw placement using the navigation system. MARs retractor was inserted using [employer] guidence. Globus MARS retractors was placed inside the incision and docked onto the L4 lamina. Using microsurgical technique and operating microscope, a L4 laminectomy and L4-5 facetectomy was performed using a Kerrison rongeur. Patient was found have severe lateral recess and neural foramen stenosis which was fully decompressed after the laminectomy facetectomy. The laminectomy and facetectomy was performed in order to decompress patient's cauda equina as well as the nerve roots exiting at the L4-5 level. More than 75% of the facets were removed during the process of decompression rendering L4-5 level grossly unstable and re quired a fusion procedure at the same time. The disc space at L4-5 was identified, and a total diskectomy was performed at L4-5 level. The endplates were decorticated using a rasp and shaver. The total diskectomy and decortication was performed at L4-5 level in order to to accomplish a L4-5 fusion. The local bone from the laminectomy and facetectomy was saved for local bone grafting. After the total diskectomy and decortication was completed, Viacel bone graft material was combined with local bone that was harvested earlier. At this time, a separate skin is incision was made over the iliac crest. A Jamshidi needle was inserted into the iliac crest through a separate skin incision. 5 cc of bone marrow aspiration was obtained through the separate skin incision using a Jamshidi needle from the iliac crest. The bone marrow aspiration was combined with local bone and the Viacel bone grafting material. The bone grafting material was placed into the L4-5 interbody space along with a expandable cage. The cage was expanded to its maximum height using the torque limiting screwdriver. The disc preparation as well as the cage insertion were also performed under navigation guidance. After the cage was placed, AP and lateral C-arm imaging was taken to confirm placement of the cage and excellent position was confirmed. The fusion mass on the left side of L3-4 level was exposed by performing a left-sided hemilaminectomy at L3-4 level. The hemilaminectomy was performed using the Kerrison rongeur to undercut the lamina as well removing additional epidural scar tissue for purpose of decompressing the epidural space. The fusion mass was explored and was found have visible motion indicating pseudoarthrosis. Globus MARS retractor was inserted and docked onto the L3-4, L4-5 posterolateral gutter. Using the power drill, posterior-lateral decortication was performed at L3-4, L4-5 level until bleeding cortical bone was identified. The remaining bone grafting material was placed into the L3-4, L4-5 posterior lateral gutter he order to accomplish posterolateral fusion at the L3- 4, L4-5 level. At this time the tulips were attached to the L3, L4-L5 pedicle screw shanks. This was done in L3, L4-L5 pedicles bilaterally. After measuring the length of the rods, they were inserted into the tulips of the pedicle screws and locked in place using locking caps and torque limiting screwdriver bilaterally. Total 6 caps and 2 titanium rods was used in order to complete the posterior instrumentation construct. After all the hardware was placed, and confirmed with AP and lateral C-arm imaging, the wound was then irrigated with sterile normal saline and packed with Ray-Alfonso gauze for 3 min to accomplish hemostasis. After the gauze was removed the deep fascia was closed with #1 Vicryl suture. The subcutaneous layer was closed with 2-0 Vicryl. The skin was closed with skin kyle. Patient tolerated the procedure well. There were no complications. The Operation could not have been safely performed without compromising the technical result or length of the procedure, without the assistance of a skilled surgical manager. The surgical manager was medically necessary for proper positioning, retraction and manipulation of instruments, proper exposure, surgical preparation, and manipulation of tissue. Neuro monitoring system was used to monitor patient's neurologic status throughout entire procedure. There was no disturbance of the neural monitoring signals throughout the case. Complications: none Post-operative Condition: stable Disposition: PACU Plan for aftercare: Admit to inpatient hospital
[2023-11-01] MEDS: hydrOXYzine 50 MG/ML INJ 25 MG IM (13:53)
[2023-11-01] MEDS: ONDANSETRON 4 MG/2 ML INJ IV (13:54)
[2023-11-01] MEDS: OXYCODONE IR 5 MG TABLET PO (14:00)
[2023-11-01] MEDS: LACTATED RINGERS 1,000 ML 125 ML IV (15:00)
--- NOTE | 2023-11-01 16:11 | OT.IPNOTE ---
Checked on pt for OT eval and not ready. Able to talk to her about home set-up.
[2023-11-01] MEDS: LACTATED RINGERS 500 ML 1000 ML IV (17:05)
--- NOTE | 2023-11-01 17:30 | PT-IP ANOTE ---
PT eval order received EMR reviewed. Spoke with nurse and stated that pt is very lethargic and hypotensive and not appropriate for PT eval at this time. will f/u.
[2023-11-01 17:50] LABS: Hematocrit 31.7 % (36-46); Hemoglobin 10.8 g/dL (12.0-16.0)
--- NOTE | 2023-11-01 17:57 | PC.NURSE ---
Patient arrived to room 208 at 1413 this afternoon. Per PACU had received pain medications in recovery and she is very somnolent upon arrival. She opens her eyes to her name but unable to keep them open. VSS initially with Soft BP's. at bedside completed admission assessment and stated her baseline BP was on the low side. Patient remains extremely somnolent through turning and repositioning. Morrissey in placed draining adequate clear yellow urine. IVF LR at 125ml/hr. After repositioning patient BP continue to drop from 90's/50's to 75/41 HR 55. MD Shepherd notified and IVF LR 500cc bolus as well as STAT H/H. Patient remains somnolent after IVF bolus. Notified of H/H results 10.8 and 31.7 BP remains 80's 40's and HR 56.
[2023-11-01] MEDS: SENNOSIDES 8.6 MG TABLET 17.2 MG PO (21:34)
[2023-11-01] MEDS: DOCUSATE 100 MG CAPSULE PO (21:34)
[2023-11-01] MEDS: ASCORBIC ACID 500 MG TABLET PO (21:34)
[2023-11-02] VITALS (9 sets, daily range): BP systolic 90–113; BP diastolic 41–59; PULSE 60–68; RESP 14–18; TEMP 36.1–37.7; O2SAT 96–100
[2023-11-02] MEDS: ACETAMINOPHEN 325 MG TABLET 650 MG PO ×3 (02:48→21:32)
[2023-11-02] MEDS: CEFAZOLIN 2 GM/100 ML PREMIX 100 ML IV (02:54)
[2023-11-02] MEDS: ONDANSETRON 4 MG/2 ML INJ IV ×2 (04:05→10:17)
[2023-11-02] MEDS: LACTATED RINGERS 1,000 ML 125 ML IV (05:10)
[2023-11-02 05:42] LABS: Hematocrit 30.2 % (36-46); Hemoglobin 10.2 g/dL (12.0-16.0)
--- NOTE | 2023-11-02 06:51 | PM.PNPO.1 ---
Subjective Subjective Date Patient Seen: 11/02/23 Time Patient Seen: 06:51 Interval history: Received calls following surgery yesterday re hypotension and bradycardia; pt given fluid bolus, H/H rechecked. Per review of office notes and discussion w/ pt, BP is normally low, 100s/50-60s. Adequate UO. Good pain control w/ Tylenol only thus far, but pt has not been OOB. Exam Vital Signs (past 8 hours): - 11/02/23 00:13 11/02/23 01:39 11/02/23 03:00 Temperature 97.6 F 99.8 F H Pulse Rate 64 65 64 Respiratory Rate 18 18 Blood Pressure 97/49 L 98/42 L 113/59 L Pulse Oximetry 97 100 Oxygen Flow Rate 0 11/02/23 04:00 Temperature 97.6 F Pulse Rate 64 Respiratory Rate 18 Blood Pressure 97/49 L Pulse Oximetry 97 Oxygen Flow Rate 0 Oxygen Delivery Method Room Air Oxygen Flow Rate 0 Narrative Exam Narrative: 5/5 strength in hip flexors, quadriceps, hamstrings, DF, PF, EHL bilaterally. Sensation to light touch intact throughout BLE, calves soft and compressible. Low back dressing placed intraoperatively is CDI. SCDs on and functioning. Objective Labs 11/02/23 05:27 Labs: Laboratory Results - last 24 hr 11/01/23 11/02/23 17:38 05:27 Hgb 10.8 L 10.2 L Hct 31.7 L 30.2 L PFSH Medical History (Updated 11/02/23 @ 06:54 by Maggie Troy PA-C) Anesthesia complication OCD (obsessive compulsive disorder) PTSD (post-traumatic stress disorder) Depression Anxiety Easy bruisability Arthritis Neck pain Back pain Abnormal small intestine motility Malabsorption Pedal edema Sciatica Surgical History (Updated 11/02/23 @ 06:54 by Maggie Troy PA-C) S/P cervical spinal fusion (01/2023) History of back surgery (01/01/20) Hx of bilateral breast implants Hx of tonsillectomy Social History household members: spouse Smoking Status: Never smoker alcohol intake: never Assessment & Plan Post-op Assessment and plan (1) S/P lumbar fusion: Assessment and Plan narrative: D/c aranda catheter. Work w/ PT. Plan is for discharge home tomorrow w/ , Dru; also has help coming in to care for her cats. SCDs on and functioning any time pt is in bed for VTE prophylaxis. (2) Hypotension after procedure: Assessment and Plan narrative: H/H stable, hypotension is currently asymptomatic, no intervention recommended at this time other than continuing IVF. Will change pain meds to tramadol for moderate pain and oxycodone 5mg for severe pain to help mitigate hypotension, but baseline for this pt is lower than 'normal' values. Postoperative Procedures: Procedures Operation Date: 11/01/23 09:45 Actual Procedure Side Surgeon p L4-5 TRANSFORAMINAL LUMBAR INTERBODY FUSION, L3-5 POSTERIOR SPINAL FUSION WITH INSTRUMENTATION, L5-S1 Left Hemilaminectomy WITH Robot Karen Shepherd MD Postoperative day: 1
[2023-11-02] MEDS: DOCUSATE 100 MG CAPSULE PO ×2 (09:36→21:31)
[2023-11-02] MEDS: TRAMADOL 50 MG TABLET PO ×3 (09:37→23:29)
--- NOTE | 2023-11-02 10:39 | PT.IIE ---
Addendum entered and electronically signed by Cassie Bentley PT 11/02/23 10:41: PT performs assessment and SDPT performs chart record today Original Note: Current Diagnoses Postprocedural hypotension (11/01/23) Spondylolisthesis, lumbar region (11/01/23) Spinal stenosis, lumbar region without neurogenic claudication (11/01/23) Arthrodesis status (11/01/23) Surgery Performed Operation Date: 11/01/23 09:45 Actual Procedures p L4-5 TRANSFORAMINAL LUMBAR INTERBODY FUSION, L3-5 POSTERIOR SPINAL FUSION WITH INSTRUMENTATION, L5-S1 Left Hemilaminectomy WITH Robot - Karen Shepherd MD Surgical History (Last Updated 10/25/23 @ 14:09 by Jen Puentes RN) History of back surgery (01/01/20) Hx of bilateral breast implants Hx of tonsillectomy S/P cervical spinal fusion (01/2023) Medical History (Last Updated 10/25/23 @ 14:09 by Jen Puentes RN) Abnormal small intestine motility Anesthesia complication Anxiety Arthritis Back pain Depression Easy bruisability Malabsorption Neck pain OCD (obsessive compulsive disorder) Pedal edema PTSD (post-traumatic stress disorder) Sciatica Physical Therapy Inpatient Evaluation/Re-Eval M1 PT/OT-IP Prior Functional Status Start: 11/02/23 09:51 Freq: NEEDED Status: Active Protocol: Document 11/02/23 09:50 JG (Rec: 11/02/23 10:39 MARIO [id number]) Medical Review Prior Functional Status Medical History Reviewed Yes Communication WNL Mobility and Gait I Activities of Daily Living and IADL's I Social History Household Members spouse Living Arrangements House Number of Floors (Floors) One Floor Number of Stairs To Enter/Railing? one platform step to enter Home Environment Standard Height Toilet,Walk in Shower,Built-In Shower Seat Home Equipment Front Wheel Walker,Grab Bars In Shower Employment Status Retired Additional Social History Comment Takes care of a lot of cats M2 PT-IP Current Condition Start: 11/02/23 09:51 Freq: NEEDED Status: Active Protocol: Document 11/02/23 09:50 JG (Rec: 11/02/23 10:39 MARIO [id number]) Physical Therapy Current Condition Current Condition Evaluation Date 05/23/24 Treatment Diagnosis TLIF M3 PT-IP Subjective Start: 11/02/23 09:51 Freq: NEEDED Status: Active Protocol: Document 11/02/23 09:50 JArleen (Rec: 11/02/23 10:39 JArleen [id number]) Subjective Physical Therapy Visit Type Type Initial Evaluation Visit Start Time 09:50 Visit Stop Time 10:08 Number of AUTO CLUTCH SPECIALIST Visits 0 Physical Therapy Visit Comments Patient Comments Pt is hypoverbal but is able to answer questions consistantly Therapy Pain Assessment Pain When Pain Assessed At Rest Pain Present Pain Present Pain Reported Location back Intensity 3 Scale Used Numeric (0 - 10) M4 PT-IP Mobility and Gait Start: 11/02/23 09:51 Freq: NEEDED Status: Active Protocol: Document 11/02/23 09:50 MARIO (Rec: 11/02/23 10:39 JArleen [id number]) PT-Transfer Assessment Sit to and From Stand Sit to and from Stand Contact Guard Assistance,1 Person Assistance,Use of Upper Extremities Equipment Transfer Assistive Device Gait Belt,Front Wheeled Walker Transfers Transfer Destination Chair Transfer Technique Stepping w/walker Transfer Ability Level of Assist Minimal Assistance,1 Person Assistance,Use of Upper Extremities Comments Mobility Comments Pt already up sitting edge of bed w/nursing staff upon arrival to room and they report pt performed log rolling technique and pt was light headed. BP+HR RUE: supine 96/50, 63; sitting 92/ 56, 69; standing 85/49, 85; once sitting up in chair 90/49 , 70. Gait Assessment Gait Gait Assistance Required: Minimum Assistance,1 Person Assist Distance (Feet) 2 Able to Maintain Weight Bearing Status Yes During Gait Assistive Devices Assistive Device Gait Belt,Front Wheeled Walker Orthotic/Prosthetic Devices or Brace: No Gait Deviations General Gait Pattern Decreased Stride Length, Decreased Feet Clearance, Flexed Trunk Factors Limiting Gait Function Factors Limiting Gait Function Decreased Activity Tolerance, Poor Balance Comments Gait Comments Short mobility due to hypotension and goal to get pt out of bed and up to chair. PT-Balance Assessment Sitting Balance and Reactions Static Sitting Balance Ability Good Dynamic Sitting Balance Ability Good Standing Balance and Reactions Static Standing Balance Ability Good Dynamic Standing Balance Ability Fair Device Used RW M5 PT-IP Objective Assessments Start: 11/02/23 09:51 Freq: NEEDED Status: Active Protocol: Document 11/02/23 09:50 JArleen (Rec: 11/02/23 10:39 J [id number]) Orientation Orientation/Cognition Level of Alertness Alert Orientation Name,Age,Birthday,Month,Date, Year,Day of Week,Place, Situation Language Function Ability No Deficits Noted Safety Awareness Understands Safety Issues Memory Description No Deficits Noted Gross Range of Motion Upper Extremity ROM Impairments Defer to OT Lower Extremity ROM Assessment Within Functional Limits Strength Lower Extremity Strength Assessment Within Functional Limits Sensation Assessment Comments Sensation Comments B foot numbness per report Muscle Tone Muscle Tone WNL Yes M6 PT-IP Treatment Start: 11/02/23 09:51 Freq: NEEDED Status: Active Protocol: Document 11/02/23 09:50 JG (Rec: 11/02/23 10:39 J [id number]) Physical Therapy Treatment Education Education Provided Precautions,Post-Op Packet, Safety M7 PT-IP Assessment and Plan Start: 11/02/23 09:51 Freq: NEEDED Status: Active Protocol: Document 11/02/23 09:50 JG (Rec: 11/02/23 10:39 J [id number]) PT Summary Assessment and Plan Potential Rehabilitation Potential Good Status of Condition at Evaluation Evolving Summary Impairments Pain,Strength,Balance, Sensation,Bed Mobility, Transfers,Gait,Activity Tolerance Progress Towards Goals Progressing Toward Goals,Slow Progress due to Medical Issues ,Slow Progress due to Activity Tolerance Assessment Summary Pt is a 58 yr old female POD1 TLIF with hx of cervical and lumbar surgeries previously. Pt was edge of bed with nursing upon PT arrival with reports of performing log roll and pt experiencing hypotension. Pt was symtomatic when sitting and standing and her BP was low but not orthostatic. She reports a hx of low BP. Limited mobility with PT due to symtoms this morning. Recommend up with nursing. Goals Bed Mobility Goal Independent Transfer Goal Independent,Front Wheeled Walker Gait Goal Independent,Front Wheel Walker Gait Distance 100 Other Goals Pt will ascend and descend one platform step with LRAD and no more than CGA to allow safe home entrance. Progress to LRAD as appropriate Days to Meet Goals 3 Frequency of Treatment Frequency Of Treatment Twice a Day Treatment Plan Physical Therapy Treatment Plan Bed Mobility Training,Transfer Training,Gait Training, Therapeutic Exercise,Balance Retraining,Post Op Education, Discharge Planning,Hot or Cold Pack,Neuromuscular Re-ed Precautions Lumbar Precautions Log Roll,No Twisting,Limit Bending,Lifting Restriction of 10 lbs,Gait Belt above Incisional Area Weight Bearing Status Weight Bearing Status Weight Bear as Tolerated Recommendations To Nursing Amount of Assist Needed 1 Person Assist Discharge Recommendations PT Discharge Recommendations Home with 02/01 Assist Available,Outpatient PT Transportation Needs at Discharge Private Vehicle
--- NOTE | 2023-11-02 10:45 | OT.IP.EVAL ---
Current Diagnoses Postprocedural hypotension (11/01/23) Spondylolisthesis, lumbar region (11/01/23) Spinal stenosis, lumbar region without neurogenic claudication (11/01/23) Arthrodesis status (11/01/23) Surgery Performed Operation Date: 11/01/23 09:45 Actual Procedures p L4-5 TRANSFORAMINAL LUMBAR INTERBODY FUSION, L3-5 POSTERIOR SPINAL FUSION WITH INSTRUMENTATION, L5-S1 Left Hemilaminectomy WITH Robot - Karen Shepherd MD Past Medical History (Last Updated 10/25/23 @ 14:09 by Jen Puentes RN) Abnormal small intestine motility Anesthesia complication Anxiety Arthritis Back pain Depression Easy bruisability Malabsorption Neck pain OCD (obsessive compulsive disorder) Pedal edema PTSD (post-traumatic stress disorder) Sciatica Surgical History (Last Updated 10/25/23 @ 14:09 by Jen Puentes RN) History of back surgery (01/01/20) Hx of bilateral breast implants Hx of tonsillectomy S/P cervical spinal fusion (01/2023) Occupational Therapy Inpatient Evaluation/Re-Eval M1 PT/OT-IP Prior Functional Status Start: 11/02/23 09:51 Freq: NEEDED Status: Active Protocol: Document 11/02/23 09:50 JG (Rec: 11/02/23 10:39 JG [id number]) Medical Review Prior Functional Status Medical History Reviewed Yes Communication WNL Mobility and Gait I Activities of Daily Living and IADL's I Social History Household Members spouse Living Arrangements House Number of Floors (Floors) One Floor Number of Stairs To Enter/Railing? one platform step to enter Home Environment Standard Height Toilet,Walk in Shower,Built-In Shower Seat Home Equipment Front Wheel Walker,Grab Bars In Shower Employment Status Retired Additional Social History Comment Takes care of a lot of cats M1 PT/OT-IP Prior Functional Status Start: 11/02/23 11:29 Freq: NEEDED Status: Active Protocol: Document 11/02/23 11:29 CCC (Rec: 11/02/23 11:50 [facility] [id number]) Medical Review Prior Functional Status Medical History Reviewed Yes Communication WNL Mobility and Gait I Activities of Daily Living and IADL's I Social History Household Members spouse Living Arrangements House Number of Floors (Floors) One Floor Number of Stairs To Enter/Railing? one platform step to enter Home Environment Standard Height Toilet,Walk in Shower,Built-In Shower Seat Home Equipment Front Wheel Walker,Tar Pot Man, Grab Bars In Shower Employment Status Retired Additional Social History Comment Takes care of a lot of cats M2 OT-IP Current Condition Start: 11/02/23 11:29 Freq: Status: Active Protocol: Document 11/02/23 11:29 [facility] (Rec: 11/02/23 11:50 [facility] [id number]) Occupational Therapy Current Condition Current Condition Evaluation Date 11/02/23 Treatment Diagnosis S/P L 4-5 TLIF, L3-5 PSF with post inst. L5-S1 L. hemilaminectomy Diagnosis Onset Date 11/01/23 Post Operative Precautions Lumbar Precautions Log Roll,No Twisting,Limit Bending,Lifting Restriction of 10 lbs,Gait Belt above Incisional Area Weight Bearing Status Weight Bearing Status Weight Bear as Tolerated M3 OT- IP Subjective and Pain Start: 11/02/23 11:29 Freq: Status: Active Protocol: Document 11/02/23 11:29 [facility] (Rec: 11/02/23 11:50 [facility] [id number]) OT- Subjective Occupational Therapy Visit Type Type Initial Evaluation Visit Start Time 09:50 Visit Stop Time 10:45 Occupational Therapy Visit Comments Patient Comments Pt agreed to get up and her present in the room. Patient/Caregiver Goals To go home. OT Pain Assessment Pain When Pain Assessed At Rest Pain Present Pain Present Pain Reported Location back Intensity 4 Scale Used Numeric (0 - 10) M4 OT- IP ADL's Start: 11/02/23 11:29 Freq: Status: Active Protocol: Document 11/02/23 11:29 [facility] (Rec: 11/02/23 11:50 [facility] [id number]) OT [id number] Comments OT Self-Feeding Comments Pt has not been hungry as feeling nauseous. OT ADL-Grooming General Evaluation Grooming Ability Standby Assistance Comments OT Grooming Comments set up while seated OT ADL-Oral Care General Eval Oral Care Ability Independent Comments Oral Care Comments while seated OT ADL-Dressing General Eval Lower Body Dressing Ability Maximum Assistance Comments OT Dressing Comments Able to practice use of LB dressing equipment for socks. OT ADL-Toileting General Evaluation Toileting Ability Standby Assistance,Minimal Assistance Areas Needing Assistance Manage Clothing Comments OT Toileting Comments Pt will need assist for brief as very nauseous and groggy at this time. Pt able to lift up and reach appropriately to wipe. Suggested use of wipe and pads. Able to show pt toilet aid. OT ADL-Bathing Comments OT Bathing Comments Pt states to assist. Pt states felt that she used the FWW in the shower last time for her back sx a few years back. M5 OT- IP IADL's Start: 11/02/23 11:29 Freq: Status: Active Protocol: Document 11/02/23 11:29 [facility] (Rec: 11/02/23 11:50 [facility] [id number]) OT-Instrumental Activities of Daily Living Deficits IADL Deficits Identified Deficits Home Safety Awareness Awareness of Need for Assistance at Home Good Awareness Home Safety Comments Pt a bit groggy at this time and best for her to provide assist at this time. M6 OT- IP Functional Cognition Start: 11/02/23 11:29 Freq: Status: Active Protocol: Document 11/02/23 11:29 [facility] (Rec: 11/02/23 11:50 [facility] [id number]) Cognitive Factors Limiting Selfcare Function Cognitive Ability Level of Alertness Drowsy Patient Orientation Name,Age,Birthday,Month,Date, Year,Day of Week,Place, Situation Attention Span Ability Capable of Focused Attention, Capable of Sustained Attention Ability to Follow Commands Able to Follow One Step Commands with Increased Time, Able to Follow One Step Commands with Repetition Cognitive Comments Cognitive Assessment Comments Pt able to follow commands but a bit groggy and needing instructions repeated at times . VC for safety awareness for hand placement and FWW use. OT- Vision and Hearing OT- Hearing Assessment OT- Hearing Assessment WFL OT- Vision Assessment Visual Acuity Glasses All The Time Visual Attentiveness WFL Occular Pursuits WFL M7 OT- IP Mobility and Balance Start: 11/02/23 11:29 Freq: Status: Active Protocol: Document 11/02/23 11:29 [facility] (Rec: 11/02/23 11:50 [facility] [id number]) OT-Transfer Assessment Sit to and From Stand Sit to and from Stand Minimal Assistance Transfers Transfer Ability Minimal Assistance Technique Transfer Destination Bedside Commode,Chair Devices Transfer Assistive Devices Gait Belt,Front Wheeled Walker Comments Mobility Comments Pt already sitting on the edge of the bed when OT arrived. Able to show pt's on the importance on being able to roll over and get the weight on her hip before getting up from sidelying. Educated pt to hinge at her hips and push up from the bed to stand. BP started at 96/50 and dropped to 85/49after getting up to the chair. After sitting awhile 90/49. Pt wanting to use the BSC and after getting back to the recliner 85/43, 76 /43-nursing notified. Able to recline the pt and bp 80/44- nursing aware. OT- Balance Assessment Sitting Balance and Reactions Static Sitting Balance Ability Good Dynamic Sitting Balance Ability Good Standing Balance and Reactions Static Standing Balance Ability Fair Dynamic Standing Balance Ability Fair M8 OT- IP Objective Assessments Start: 11/02/23 11:29 Freq: Status: Active Protocol: Document 11/02/23 11:29 [facility] (Rec: 11/02/23 11:50 [facility] [id number]) OT Gross Range of Motion Upper Extremity Range of Motion Assessment Within Functional Limits OT Strength Upper Extremity Strength Assessment Within Functional Limits M9 OT- IP Assessment and Plan Start: 11/02/23 11:29 Freq: Status: Active Protocol: Document 11/02/23 11:29 [facility] (Rec: 11/02/23 11:50 [facility] [id number]) OT Summary Assessment and Plan Potential Rehabilitation Potential Excellent Analytic Complexity at Evaluation Low Summary OT Impairments Pain,Strength,Balance, Functional Mobility,Grooming, Dressing,Toileting,Bathing, Toilet Transfers,Shower Transfers,Activity Tolerance Progress Towards Goals Slow Progress due to Pain,Slow Progress due to Medical Issues Assessment Summary Pt low complexity and main barriers are pt is orthostatic , nauseous-which limits her mobility, and groggy Able to initiate caregiver training with pt's for gait belt, ADL and mobility needs. Pt to go home when medically stable. Goals Grooming Goal Independent Dressing Goal Independent,Tar Pot Man,Sock Aid Toileting Goal Independent Bathing Goal Standby Assistance Toilet Transfer Goal Independent Shower Transfer Goal Standby Assistance Days to Meet Goals 7 Frequency of Treatment Frequency Of Treatment Once a Day Treatment Plan OT Treatment Plan ADL Training,Functional Mobility,Patient/Family Education,Discharge Planning Other Treatment Recommendations and Next Standing ADL's, caregiver Treatment Focus training Discharge Recommendations OT Discharge Recommendations Home with 02/01 Assist Available Home Equipment Needs Sock aid Transportation Needs at Discharge Private Vehicle
--- NOTE | 2023-11-02 11:43 | CM.DANOTE ---
DCP Assessment: Pt is a 58yo female, resident of [place], is admitted s/p TLIF. Pt lives in a house with her , Dru, and their 8 cats. Pt's Primary Care Provider is Dr. Herminio Greco and insurance is [employer]. Reviewed chart and team rounds for pt's medical status and initial discharge needs. DCP met w/patient at bedside; introduced self and role. Pt was found in bed, somnolent but cooperative with assessment. Pt expressed she is still feeling dizzy and nauseous. Pt confirmed living situation and good support in . Pt expressed preference in returning home as soon as today but she also reports she is feeling groggy from the medication. Pt agreeable to working with therapies and following their recommendations. Pt has no prior history of transferring to SNF or working with HH agencies, denied any specific preferences for agencies. Plan: PT and OT anticipating dc home with assist from spouse. Spouse can transport home. CM team will plan to follow clinical course closely for assessment of need and coordination of discharge plan. HUNTER Orantes Discharge Planning/Care Management CM Discharge Assessment Start: 11/02/23 11:40 Freq: Status: Active Protocol: Document 11/02/23 11:40 MW (Rec: 11/02/23 11:43 MW [id number]) Discharge Planning Assessment Assigned Apprenticeship Representative HERLINDA Baxter DPOA/Assigned Designee Name Dru Spouse Contact Information [phone] Advance Directives? No History Provided By Patient,Medical Record Expected Length of Stay 2 Has Patient been admitted in last 30 No days? Prior Living Arrangements House Household Members spouse,other Comment Patient has 8 cats, both indoor and outdoor. Type of transporation used prior to Drives own vehicle admit Independent with ADL's Yes Is patient alert and oriented? Yes Caregiver for Another No Discharge Plan Home Referrals Initiated None needed Medicare Choice List Provided Yes SNF/HH Preference Pt has not stated a preference at this time, but open to hearing about HH if recommended by therapies. Whiteboard Updated in Patient Room with Yes name and ext. # of Apprenticeship Representative Please Provide Date Initial DC 11/02/23 Assessment Was Performed Next Review Type Continued Stay Review
--- NOTE | 2023-11-02 14:19 | PT.IPTN ---
Current Diagnoses Postprocedural hypotension (11/01/23) Spondylolisthesis, lumbar region (11/01/23) Spinal stenosis, lumbar region without neurogenic claudication (11/01/23) Arthrodesis status (11/01/23) Surgery Performed Operation Date: 11/01/23 09:45 Actual Procedures p L4-5 TRANSFORAMINAL LUMBAR INTERBODY FUSION, L3-5 POSTERIOR SPINAL FUSION WITH INSTRUMENTATION, L5-S1 Left Hemilaminectomy WITH Robot - Karen Shepherd MD Physical Therapy Treatment Note M2 PT-IP Current Condition Start: 11/02/23 09:51 Freq: NEEDED Status: Active Protocol: Document 11/02/23 09:50 JG (Rec: 11/02/23 10:39 JG [id number]) Physical Therapy Current Condition Current Condition Evaluation Date 11/02/23 Treatment Diagnosis TLIF M3 PT-IP Subjective Start: 11/02/23 09:51 Freq: NEEDED Status: Active Protocol: Document 11/02/23 14:43 TS (Rec: 11/02/23 14:53 TS [id number]) Subjective Physical Therapy Visit Type Type Treatment Note Visit Start Time 14:19 Visit Stop Time 14:43 Notes Spouse in room Number of DIPLOMATIC OFFICER Visits 1 Physical Therapy Visit Comments Patient Comments Pt found sitting in chair, is agreeable to PT. Therapy Pain Assessment Pain When Pain Assessed At Rest Pain Present Pain Present Pain Reported Location back Intensity 3 Scale Used Numeric (0 - 10) Pain Management Techniques Distraction,Modification of Treatment,Re-positioning, Timing of Activity with Medications M4 PT-IP Mobility and Gait Start: 11/02/23 09:51 Freq: NEEDED Status: Active Protocol: Document 11/02/23 14:43 TS (Rec: 11/02/23 14:53 TS [id number]) PT-Transfer Assessment Sit to and From Stand Sit to and from Stand Contact Guard Assistance,1 Person Assistance,Use of Upper Extremities Equipment Transfer Assistive Device Gait Belt,Front Wheeled Walker Orthotic/Prosthetic Devices or Brace: No Comments Mobility Comments Bp in sitting 97/39. STS from chair CGA with BUE support pushing from arms of chair. Bp in standing 90/45. Pt ambulated in room ~30'SBA with some lightheadedness. She performed steps x2 with use of FWW and CGA from spouse. Pt agreed to longer ambulation. Pt ambulated ~250'SBA with FWW , she reports some lightheadedness. Pt would like to return home and RN was notified. Pt was left in room, all needs met. Gait Assessment Gait Gait Assistance Required: Standby Assistance Distance (Feet) 280 Able to Maintain Weight Bearing Status Yes During Gait Assistive Devices Assistive Device Gait Belt,Front Wheeled Walker Orthotic/Prosthetic Devices or Brace: No Gait Deviations General Gait Pattern Decreased Stride Length, Decreased Feet Clearance, Flexed Trunk Factors Limiting Gait Function Factors Limiting Gait Function Decreased Activity Tolerance, Poor Balance Stair Climbing Assessment Evaluation Level of Assist On Stairs Contact Guard Assistance Devices Stair Climbing Assistive Devices Front Wheel Walker Technique/Endurance Stair Climbing Direction Ascend and Descend Stair Climbing Technique Step to Step Number of Steps Climbed 2 Comments Stair Climbing Comments See mobility comments PT-Balance Assessment Sitting Balance and Reactions Static Sitting Balance Ability Good Dynamic Sitting Balance Ability Good Standing Balance and Reactions Static Standing Balance Ability Good Dynamic Standing Balance Ability Fair Device Used RW M5 PT-IP Objective Assessments Start: 11/02/23 09:51 Freq: NEEDED Status: Active Protocol: Document 11/02/23 09:50 JG (Rec: 11/02/23 10:39 JG [id number]) Orientation Orientation/Cognition Level of Alertness Alert Orientation Name,Age,Birthday,Month,Date, Year,Day of Week,Place, Situation Language Function Ability No Deficits Noted Safety Awareness Understands Safety Issues Memory Description No Deficits Noted Gross Range of Motion Upper Extremity ROM Impairments Defer to OT Lower Extremity ROM Assessment Within Functional Limits Strength Lower Extremity Strength Assessment Within Functional Limits Sensation Assessment Comments Sensation Comments B foot numbness per report Muscle Tone Muscle Tone WNL Yes M6 PT-IP Treatment Start: 11/02/23 09:51 Freq: NEEDED Status: Active Protocol: Document 11/02/23 14:43 TS (Rec: 11/02/23 14:53 TS [id number]) Physical Therapy Treatment Education Education Provided Precautions,Post-Op Packet, Safety M7 PT-IP Assessment and Plan Start: 11/02/23 09:51 Freq: NEEDED Status: Active Protocol: Document 11/02/23 14:43 TS (Rec: 11/02/23 14:53 TS [id number]) PT Summary Assessment and Plan Potential Rehabilitation Potential Good Summary Impairments Pain,Strength,Balance, Sensation,Bed Mobility, Transfers,Gait,Activity Tolerance Progress Towards Goals Progressing Toward Goals Assessment Summary M[place]o is making good progress with her mobility. She is CGA for STS with use of FWW. She progressed her gait to ~280'SBA with use of FWW. Pt's BP remains low, see mobility comments above, but she would like to go home today. Spouse was instructed in gait training, STS technique and stair training. PT is recommending pt return home with assist. Goals Bed Mobility Goal Independent Transfer Goal Independent,Front Wheeled Walker Gait Goal Independent,Front Wheel Walker Gait Distance 100 Other Goals Pt will ascend and descend one platform step with LRAD and no more than CGA to allow safe home entrance. Progress to LRAD as appropriate Days to Meet Goals 3 Frequency of Treatment Frequency Of Treatment Twice a Day Treatment Plan Physical Therapy Treatment Plan Bed Mobility Training,Transfer Training,Gait Training, Therapeutic Exercise,Balance Retraining,Post Op Education, Discharge Planning,Hot or Cold Pack,Neuromuscular Re-ed Precautions Lumbar Precautions Log Roll,No Twisting,Limit Bending,Lifting Restriction of 10 lbs,Gait Belt above Incisional Area Weight Bearing Status Weight Bearing Status Weight Bear as Tolerated Recommendations To Nursing Amount of Assist Needed 1 Person Assist Discharge Recommendations PT Discharge Recommendations Home with 02/01 Assist Available,Outpatient PT Transportation Needs at Discharge Private Vehicle
[2023-11-02] MEDS: polyethylene glycoL 3350 17 GM POWD.PACK PO (15:16)
[2023-11-02] MEDS: ONDANSETRON 4 MG ODT SL (20:20)
[2023-11-02] MEDS: SENNOSIDES 8.6 MG TABLET 17.2 MG PO (21:31)
--- NOTE | 2023-11-03 07:03 | P.DS_ITS ---
History of Present Illness History of Present Illness Date Patient Seen: 11/03/23 Time Patient Seen: 07:03 Chief complaint: TLIF Narrative: Operative Date/Time/Diagnoses Date of procedure: 11/01/23 Time of procedure: 10:30 Pre-op diagnosis: 1. L4-5 spondylolisthesis 2. L4-5 spinal stenosis 3. L3-4 with history of fusion Post-op diagnosis: same Procedure & Clinicians Procedure: 1. L4-5 posterolateral and posterior interbody fusion 2. L4-5 posterior interbody cage placement 3. L3-4 posterior non-segmental instrumentation removal 4. L3-4 revision laminectomy with exploration of fusion 5. L3-4, L4-5 posterior segmental instrumentation with pedicle screw placement 6. L3-4 posterolatearl fusion 7. [place] of bone marrow from iliac crest through a separate incision 8. Utilization of microsurgical technique and operating microscope 9. Utilization of robotic assisted navigation Same procedure as scheduled: Yes Indications: Patient has been having chronic back pain and worsening lumbar radiculopathy. Patient had history of L3-4 fusion and was doing well until recently. Patient was found to have a significant L4-5 lateral listhesis with foraminal stenosis correlating with her symptoms of back pain and radiculopathy. Patient failed multiple conservative management with worsening pain weakness and numbness in her lower extremity. Patient has been having difficulty performing activity of daily living. After discussing risks benefits of treatment options, patient elected proceed with surgery. Surgeon: Karen Shepherd Resident Care Supervisor: Maggie Troy Click Yes if Unassisted: No Anesthesia Type: General Operative Notes Closure Type: primary Specimen(s): none sent Prosthetic devices, grafts, tissues, transplants, or devices: Globus CREO MIS screws, Rise cage Applied: catheter Estimated Blood Loss (mL): 300 Blood products transfused: none Discharge Providers Provider Date of admission: 11/01/23 08:18 Discharge Date: 11/03/23 Primary care physician: Herminio Greco MD Consults: 11/01/23 14:16 Consult to Occupational Therapy Evaluate & Treat Comment: Physician Instructions: Evaluate and treat Consult to Physical Therapy Evaluate & Treat Comment: Physician Instructions: Evaluate and Treat Discharge provider: Maggie Troy PA-C Summary Hospital Course Discharge Diagnosis: L4-5 spondylolisthesis, L4-5 spinal stenosis, L3-4 with history of fusion; s/p L4-5 TLIF w/ posterior instrumentation from L3-L5 Hospital Course: Ms Kaur's hospital course was remarkable for symptomatic hypotension following surgery. Her H/H was checked and found to be stable. Her heart rate was WNL and she made adequate amounts of urine during her stay. She has a h/o chronic hypotension, normally 90s-100s/50s-60s. On the morning of POD# 2, she was feeling much better with about the same BP she had throughout her stay. She no longer had nausea or dizziness, but she still c/o back pain. She was taking minimal amounts of Tramadol, and cyclobenzaprine was added for discharge. She very much wanted to go home to see her cats and reported that her spouse was feeling confident about caring for her at home. She was evaluated by PT throughout her stay and they felt she was appropriate for homegoing with her spouse's assistance. Exam Vital Signs (past 8 hours): - 11/02/23 23:22 11/02/23 23:30 Temperature 98.6 F Pulse Rate 68 Respiratory Rate 14 Blood Pressure 92/45 L 96/48 L Pulse Oximetry 96 Oxygen Delivery Method Room Air Oxygen Flow Rate 0 Narrative Exam Narrative: 5/5 strength in hip flexors, quadriceps, hamstrings, DF, PF, EHL bilaterally. Sensation to light touch intact throughout BLE. Calves soft, compressible, nontender; SCDs are not on. Low back dressing placed intraoperatively is CDI. Objective Labs 11/02/23 05:27 [facility] Medical History (Updated 11/02/23 @ 06:54 by Maggie Troy PA-C) Anesthesia complication OCD (obsessive compulsive disorder) PTSD (post-traumatic stress disorder) Depression Anxiety Easy bruisability Arthritis Neck pain Back pain Abnormal small intestine motility Malabsorption Pedal edema Sciatica Surgical History (Updated 11/02/23 @ 06:54 by Maggie Troy PA-C) S/P cervical spinal fusion (01/2023) History of back surgery (01/01/20) Hx of bilateral breast implants Hx of tonsillectomy Social History household members: spouse and other Smoking Status: Never smoker alcohol intake: never Discharge Assessment & Plan Assessment and Plan Assessment: L4-5 spondylolisthesis, L4-5 spinal stenosis, L3-4 with history of fusion; s/p L4-5 TLIF w/ posterior instrumentation from L3-L5 Plan of Treatment: Discharge home, multimodal pain control, f/u in 2 weeks as scheduled. Discharge Plan Discharge Plan Patient Disposition: Home Discharge orders & Medications Prescriptions: New tramadol 50 mg Tablet 50 mg PO Q4-6H PRN (Reason: Pain, Moderate (4-6)) Qty: 40 0RF cyclobenzaprine 10 mg Tablet 5 mg PO Q8HR PRN (Reason: Muscle Spasm) Qty: 30 0RF docusate sodium 100 mg Capsule 100 mg PO BID PRN (Reason: constipation) Qty: 60 1RF acetaminophen 325 mg Tablet 650 mg PO Q6H PRN (Reason: Fever/Mild Pain (1-3)) Qty: 240 0RF ondansetron 4 mg Tablet,Disintegrating 4 mg sublingual Q6-8H PRN (Reason: Nausea) Qty: 30 0RF Continued ascorbic acid (vitamin C) [Vitamin C] 500 mg Tablet 500 mg PO TID multivitamin Capsule 1 cap PO DAILY cholecalciferol (vitamin D3) [Vitamin D3] 25 mcg (1,000 unit) Tablet 1,000 unit PO DAILY magnesium glycinate 100 mg Tablet 100 mg PO BEDTIME magnesium citrate 125 mg Capsule 125 mg PO BEDTIME estradiol 0.01 % (0.1 mg/gram) Cream 1 g VAGINAL 2XW Follow up/Referrals: Herminio Greco MD [Primary Care Provider] - Karen Shepherd MD [Physician] - 11/15/23 9:50 am (Follow up w/ Ousmane Serrano PA-C, at [facility] in [place].) Diet/Activity/Treatments Diet: Diet as Tolerated Activity: No deep bending or twisting at the waist. No lifting more than 10 pounds. Cold/Heat Therapy: Heating pad to low back as needed for pain. Skin/Wound/Dressing Care Report to your healthcare provider any signs of infection, such as:: chills, fever, night sweats, unusual drainage and unusual redness Dressing: May shower; keep dressing as dry as possible. If dressing becomes wet or dirty, may remove and replace with clean, dry gauze. No bathing or otherwise soaking incisions. Do not pick off the skin glue on the incisions; allow it to come off on its own. Do not apply any creams, lotions, or ointments to incisions. Visit Report/Discharge Packet Instructions: DI for Transforaminal Lumbar Interbody Fusion, DI for Prescription Opioid Use Stand Alone Forms: Patient Portal/API, Stroke Signs & Symptoms, Surgery Discharge Discharge Data Primary Care Provider: Herminio Greco
[2023-11-03] MEDS: TRAMADOL 50 MG TABLET PO (09:27)
[2023-11-03] MEDS: ASCORBIC ACID 500 MG TABLET PO (09:27)
[2023-11-03] MEDS: CYCLOBENZAPRINE 10 MG TABLET 5 MG PO (09:27)
[2023-11-03] MEDS: MULTIVITAMIN 1 TABLET 1 TAB PO (09:27)
[2023-11-03] MEDS: DOCUSATE 100 MG CAPSULE PO (09:27)
[2023-11-03] MEDS: CHOLECALCIFEROL (VITAMIN D3) 1,000 UNIT TABLET 1000 UNIT PO (09:28)
[2023-11-03 09:35] VITALS: BP 110/56; PULSE 76; RESP 16; TEMP 36.6; O2SAT 98
[2023-11-03] MEDS: OXYCODONE IR 10 MG TABLET 5 MG PO (10:38)
[2023-11-03] MEDS: ACETAMINOPHEN 325 MG TABLET 650 MG PO (10:38)
--- NOTE | 2023-11-03 10:38 | OT.IP.TRT ---
Current Diagnoses Postprocedural hypotension (11/01/23) Spondylolisthesis, lumbar region (11/01/23) Spinal stenosis, lumbar region without neurogenic claudication (11/01/23) Arthrodesis status (11/01/23) Surgery Performed Operation Date: 11/01/23 09:45 Actual Procedures p L4-5 TRANSFORAMINAL LUMBAR INTERBODY FUSION, L3-5 POSTERIOR SPINAL FUSION WITH INSTRUMENTATION, L5-S1 Left Hemilaminectomy WITH Robot - Karen Shepherd MD Occupational Therapy Treatment Note M2 OT-IP Current Condition Start: 11/02/23 11:29 Freq: Status: Active Protocol: Document 11/02/23 11:29 [facility] (Rec: 11/02/23 11:50 [facility] [id number]) Occupational Therapy Current Condition Current Condition Evaluation Date 11/02/23 Treatment Diagnosis S/P L 4-5 TLIF, L3-5 PSF with post inst. L5-S1 L. hemilaminectomy Diagnosis Onset Date 11/01/23 Post Operative Precautions Lumbar Precautions Log Roll,No Twisting,Limit Bending,Lifting Restriction of 10 lbs,Gait Belt above Incisional Area Weight Bearing Status Weight Bearing Status Weight Bear as Tolerated M3 OT- IP Subjective and Pain Start: 11/02/23 11:29 Freq: Status: Active Protocol: Document 11/03/23 09:55 [facility] (Rec: 11/03/23 12:03 [facility] [id number]) OT- Subjective Occupational Therapy Visit Type Type Treatment Note Visit Start Time 09:55 Visit Stop Time 10:38 Occupational Therapy Visit Comments Patient Comments Pt wanting to shower. Patient/Caregiver Goals TO go home. OT Pain Assessment Pain When Pain Assessed During Mobility Pain Present Pain Present Pain Reported M4 OT- IP ADL's Start: 11/02/23 11:29 Freq: Status: Active Protocol: Document 11/03/23 09:55 [facility] (Rec: 11/03/23 12:03 [facility] [id number]) OT [id number] General Evaluation Self-Feeding Ability Independent OT ADL-Grooming General Evaluation Grooming Ability Independent OT ADL-Oral Care General Eval Oral Care Ability Independent OT ADL-Dressing General Eval Lower Body Dressing Ability Minimal Assistance Comments OT Dressing Comments Able to use LB dressing equipment to assist with brief and pants. Pt's to be there to assist. OT ADL-Toileting Comments OT Toileting Comments Not performed. OT ADL-Bathing General Evaluation Bathing Ability Minimal Assistance Areas Needing Assistance Wash/Dry Back,Wash/Dry Lower Extremities Comments OT Bathing Comments Pt needing assist with her back and feet. Educated pt to cover the dressing while showering. M6 OT- IP Functional Cognition Start: 11/02/23 11:29 Freq: Status: Active Protocol: Document 11/03/23 09:55 [facility] (Rec: 11/03/23 12:03 [facility] [id number]) Cognitive Factors Limiting Selfcare Function Cognitive Ability Level of Alertness Alert Patient Orientation Name,Age,Birthday,Month,Date, Year,Day of Week,Place, Situation Attention Span Ability Capable of Focused Attention, Capable of Sustained Attention Ability to Follow Commands Able to Follow Multi-Step Commands Safety Awareness Underestimates Need for Assistance Cognitive Comments Cognitive Assessment Comments Pt is a bit impulsive and needing cues to slow down and take her time. Encourage pt to communicate well with her and to let him know what her needs are instead of trying to do it herself. VC for transitions and to be sure to tighten her quad while coming to stand. M7 OT- IP Mobility and Balance Start: 11/02/23 11:29 Freq: Status: Active Protocol: Document 11/03/23 09:55 [facility] (Rec: 11/03/23 12:03 [facility] [id number]) OT-Transfer Assessment Sit to and From Stand Sit to and from Stand Standby Assistance,Contact Guard Assistance Transfers Transfer Ability Standby Assistance Technique Transfer Destination Chair,Shower Stall Devices Transfer Assistive Devices Gait Belt,Front Wheeled Walker Comments Mobility Comments CGA to stand and vc for for safety to push up with her hands to stand. Once on her feet SBA. OT- Balance Assessment Sitting Balance and Reactions Static Sitting Balance Ability Normal Dynamic Sitting Balance Ability Good Standing Balance and Reactions Static Standing Balance Ability Good Dynamic Standing Balance Ability Good M8 OT- IP Objective Assessments Start: 11/02/23 11:29 Freq: Status: Active Protocol: Document 11/02/23 11:29 [facility] (Rec: 11/02/23 11:50 [facility] [id number]) OT Gross Range of Motion Upper Extremity Range of Motion Assessment Within Functional Limits OT Strength Upper Extremity Strength Assessment Within Functional Limits M9 OT- IP Assessment and Plan Start: 11/02/23 11:29 Freq: Status: Active Protocol: Document 11/03/23 09:55 [facility] (Rec: 11/03/23 12:03 [facility] [id number]) OT Summary Assessment and Plan Potential Rehabilitation Potential Excellent Analytic Complexity at Evaluation Low Summary OT Impairments Pain,Strength,Balance, Functional Mobility,Grooming, Dressing,Toileting,Bathing, Toilet Transfers,Shower Transfers,Activity Tolerance Progress Towards Goals Progressing Toward Goals Assessment Summary Able to do caregiver training with pt's for mobility and ADL needs. Pt at times still needs vc to slow down. Pt to go home with her to assist. Goals Grooming Goal Independent Dressing Goal Independent,Sound System Installer,Sock Aid Toileting Goal Independent Bathing Goal Standby Assistance Toilet Transfer Goal Independent Shower Transfer Goal Standby Assistance Days to Meet Goals 5 Frequency of Treatment Frequency Of Treatment Once a Day Treatment Plan OT Treatment Plan ADL Training,Functional Mobility,Patient/Family Education,Discharge Planning Discharge Recommendations OT Discharge Recommendations Home with Assistance Home Equipment Needs Sock aid Transportation Needs at Discharge Private Vehicle
--- NOTE | 2023-11-03 11:07 | PT-IP ANOTE ---
Pt is to d/c soon, has no PT needs at this time.
--- NOTE | 2023-11-03 15:21 | PC.NURSE ---
Discharge: Pt feels ready to d/c to home. Has been seen by PA and given d/c instructions. Seen by physical therapy and occupational therapy and memory care director training is complete and pt is safe to go to home. Dressing changed to low back, spouse shown how to do same. Given 1 dressing in case it is needed. Discussed wound care. Discussed fall potential. Given discharge packet and reviewed. Rx has been esent and she is aware. Pt d/c to home via auto w/spouse. She voiced no concerns.
== END 2023-11-03 12:30 | disposition home or self-care (01) | DRG 454 ==
PROVIDERS: Admitting Provider Orthopaedic Surgery Orthopaedic Surgery of the Spine; PCP Internal Medicine; Referring Provider Orthopaedic Surgery; Visit Provider Orthopaedic Surgery Orthopaedic Surgery of the Spine
PROC: 0SG00AJ Fusion of Lumbar Vertebral Joint with Interbody Fusion Device, Posterior Approach, Anterior Column, Open Approach (ICD-10-PCS; principal; 2023-11-01 09:45)
DX: M48.061 Spinal stenosis, lumbar region without neurogenic claudication (principal); M96.0 Pseudarthrosis after fusion or arthrodesis; M96.1 Postlaminectomy syndrome, not elsewhere classified; M48.07 Spinal stenosis, lumbosacral region; I95.81 Postprocedural hypotension; R00.1 Bradycardia, unspecified; Z98.1 Arthrodesis status
CPT/HCPCS: 36415; 72100; 76000; 85014; 85018; 97116; 97161; 97165; 97530; 97535; C1713; C1821; C9290; J0171; J0330; J0690; J1100; J1170; J2250; J2405; J2704; J3010; J3410